=== PATIENT | male | born 1960 | race Caucasian/White ===

== ENCOUNTER 2016-05-12 07:59 | Emergency (ER) | payer MEDICARE | END 2016-05-12 09:16 | disposition home or self-care (01) | LOC: ER 07:59 | DX: K04.7 Periapical abscess without sinus (principal); F17.210 Nicotine dependence, cigarettes, uncomplicated; Z86.73 Personal history of transient ischemic attack (TIA), and cerebral infarction without residual deficits | CPT/HCPCS: 96372; J0696 ==